=== PATIENT | male | born 1995 | race American Indian/Alaskan Native ===

== ENCOUNTER 2017-09-29 17:22 | Emergency (ER) | payer BC ==
--- NOTE | 2017-09-29 17:34 | EDM.PDOC ---
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 He was apparently bucked off, and the bull stepped on the back of his head. The patient states that he was wearing a helmet and chest protector best. The patient apparently suffered an approximately 5 minute seizure immediately after being stepped on, after which, when he woke up, he was confused. His confusion has improved since then. He complains only of pain to the back of his head, not to his neck, and there are no other witnessed injuries - one of the EMS technicians was at the rodeo and witnessed the injury. The patient's BP was 177/112 with a HR of 120. The patient was backboarded with a cervical collar per EMS. His oxygen saturation was 92% on room air; EMS placed a nonrebreather mask. The patient vomited once en route; EMS gave 4 mg Zofran IVP. Here in the ED, the patient is complaining of some low back pain while still on the backboard. He states that he recalls riding the bull, but that the next thing he remembers is waking up in the ambulance. He does not recall the fall off the bull or being stepped on. Head Pain Score (Numeric/FACES): 6 - Related Data Allergies Allergy/AdvReac Type Severity Reaction Status Date / Time No Known Allergies Allergy Verified 09/29/17 17:59 Home Meds: Home Meds . [No Known Home Meds] 09/29/17 [History] Past Medical History - Past Surgical History GI Surgical History: Reports: Appendectomy Dermatological Surgical History: Reports: Skin Graft (left forearm) Social & Family History - Tobacco Use Smoking Status *Q: Never Smoker - Alcohol Use Alcohol Use History: Yes Alcohol Use Frequency: Socially - Recreational Drug Use Recreational Drug Use: Yes Drug Use in Last 12 Months: Yes Recreational Drug Type: Reports: Marijuana/Hashish (smokes occasionally) - Living Situation & Occupation Living situation: Reports: Single, with Family Occupation: Unemployed Review of Systems - Review of Systems Review Of Systems: ROS reveals no pertinent complaints other than HPI. ED EXAM, GENERAL - Physical Exam Exam: See Below Exam Limited By: No Limitations General Appearance: Alert, WD/WN, No Apparent Distress Eye Exam: Bilateral Eye: EOMI, Normal Inspection, PERRL Ears: Normal External Exam, Normal Canal, Hearing Grossly Normal, Normal TMs Nose: Normal Inspection, Normal Mucosa, No Blood Throat/Mouth: Normal Inspection, Normal Lips, Normal Teeth, Normal Gums, Normal Oropharynx, Normal Voice, No Airway Compromise Head: Atraumatic (No visible or palpable abnormality to the posterior scalp, although the patient complains of some tenderness to the posterior left scalp), Normocephalic Neck: Other (Cervical collar kept on) Respiratory/Chest: No Respiratory Distress, Lungs Clear, Normal Breath Sounds, No Accessory Muscle Use, Chest Non-Tender Cardiovascular: Normal Peripheral Pulses, Regular Rate, Rhythm, No Edema, No Gallop, No JVD, No Murmur, No Rub Peripheral Pulses: 4+: Radial (L), Radial (R) GI/Abdominal: Normal Bowel Sounds, Soft, Non-Tender, No Organomegaly, No Distention, No Abnormal Bruit, No Mass (Male) Exam: Deferred Rectal (Males) Exam: Deferred Back Exam: Normal Inspection (No visible or palpable abnormality to the patient' s spine. No tenderness to palpation of the patient's back.), Full Range of Motion Extremities: Normal Inspection, Normal Range of Motion, Non-Tender, Normal Capillary Refill, No Pedal Edema Neurological: Alert, Oriented (To person, place, year, and month, but not date. Correctly names the vice president of contracts.), CN II-XII Intact, Normal Cognition, No Motor/Sensory Deficits Psychiatric: Normal Affect Skin Exam: Warm, Dry, Intact, Normal Color, No Rash Course - Orders/Labs/Meds Orders: Active Orders 24 hr Category Date Time Status Cervical Spine wo Cont [CT] Routine Exams 09/29/17 Ordered Head wo Cont [CT] Routine Exams 09/29/17 Ordered Sodium Chloride 0.9% [Normal Saline] 1,000 ml Med 09/29/17 17:45 Active IV ASDIRECTED Medication Orders Sodium Chloride (Normal Saline) 1,000 mls @ 150 mls/hr IV ASDIRECTED COLLEEN Last Admin: 09/29/17 17:50 Dose: 150 mls/hr Meds: Medications Generic Name Dose Route Start Last Admin Trade Name Freq PRN Reason Stop Dose Admin Sodium Chloride 1,000 mls @ 150 mls/hr 09/29/17 17:45 09/29/17 17:50 Normal Saline IV 150 mls/hr ASDIRECTED COLLEEN Administration Discontinued Medications Generic Name Dose Route Start Last Admin Trade Name Freq PRN Reason Stop Dose Admin Ondansetron HCl 4 mg 09/29/17 17:43 09/29/17 17:50 Zofran IVPUSH 09/29/17 17:44 4 mg ONETIME ONE Administration - Re-Assessments/Exams Free Text/Narrative Re-Assessment/Exam: 09/29/17 17:43 The patient was able to provide me a good past medical history, but vomited in the ED. I have ordered additional Zofran 4 mg and NS at 150 mL per hour. 09/29/17 18:02 CT of the head without contrast is read by [facility] as "Hematoma left parietal region. No underlying skull fracture." CT of the cervical spine without contrast is read by [facility] as "No acute findings." 09/29/17 18:08 At present, the patient is alert. He is aware that the month is September, although is not sure if it is September 26 of October 07. He knows the year and knows the president. He has vomited 3 times total. He is complaining of a headache. Clinically, I believe the patient has a concussion, especially in light of his post-injury seizure. The patient will require observation for neuro checks. 09/29/17 18:[address] Gilman at 18:10. He does not feel that the nursing staff at this facility are adequately trained and comfortable with neuro checks for closed head injuries, and is therefore recommending transfer to [place]. The patient prefers transfer to [facility]. 09/29/17 18:30 [facility] contacted at 18:25. Case discussed with Dr. Jimenez, ED physician at [facility], at 18: 28. Unfortunately, there is no Neurosurgeon skin lap bonder at [facility], therefore she cannot accept the patient for transfer. The patient will have to go to [facility]. 09/29/17 18:36 Case discussed with [facility] at 18:33. Case then discussed with Dr. Trejo, ED physician at [facility], at 18:35. She stated that the trauma surgeon, Dr. Hackett, was standing next to her. She accepts patient for transfer to their emergency department. CT images have been pushed to [facility]. Departure - Departure Time of Disposition: 18:37 Disposition: DC/Tfer to Acute Hospital 02 Condition: Fair Clinical Impression: Traumatic injury of head, Concussion - Discharge Information - My Orders Last 24 Hours: My Active Orders 09/29/17 Cervical Spine wo Cont [CT] Routine Head wo Cont [CT] Routine 09/29/17 17:45 Sodium Chloride 0.9% [Normal Saline] 1,000 ml IV ASDIRECTED - Assessment/Plan Last 24 Hours: My Active Orders 09/29/17 Cervical Spine wo Cont [CT] Routine Head wo Cont [CT] Routine 09/29/17 17:45 Sodium Chloride 0.9% [Normal Saline] 1,000 ml IV ASDIRECTED
[2017-09-29] MEDS ORDERED: Ondansetron 4 MG/2 ML SDV IVPUSH ONE (17:43)
[2017-09-29] MEDS ORDERED: Sodium Chloride 0.9% 1,000 ML IV SCH (17:45)
--- NOTE | 2017-09-30 16:18 | CT ---
Head CT Technique: Multiple axial sections through the brain were obtained. Intravenous contrast was not utilized. Comparison: No previous intracranial imaging. Findings: Ventricles along the basal cisterns and sulci over the convexities are within normal limits for the patient's age. No abnormal parenchymal densities are seen. No evidence of intracranial hemorrhage. No midline shift or mass effect is seen. Bone window settings were reviewed and show no acute calvarial abnormality. Minimal mucosal thickening is seen within the ethmoid sinuses. Scalp hematoma is noted within the left parietal region. Impression: 1. Mild scalp hematoma within the left parietal region. 2. No acute intracranial abnormality is seen. 3. Minimal sinus findings which are felt to be incidental. Diagnostic code #2 I agree with preliminary report from [facility], finalized at 09/29/17, 6:57 PM Central Time
--- NOTE | 2017-09-30 16:18 | CT ---
CT cervical spine Technique: Multiple axial sections were obtained from above C1 inferiorly to the bottom of T3. Reconstructed sagittal and coronal images were reviewed. Comparison: No previous study. Findings: Vertebral body heights and disc spaces are maintained. Prevertebral soft tissues are normal. No fracture is seen. No bony central or bony neural foraminal stenosis is seen. No abnormal subluxation is seen on the reconstructed sagittal images. Minimal scoliosis is present. Impression: 1. Minimal scoliosis. 2. Nothing acute is seen on CT study of the cervical spine. Diagnostic code #2 I agree with preliminary report from [facility], finalized at 09/29/17, 6:59 PM Central Time
== END 2017-09-29 19:26 ==
LOC: JD.ED 17:22
DX: S06.0X9A Concussion with loss of consciousness of unspecified duration, initial encounter (principal); W55.22XA Struck by cow, initial encounter
CPT/HCPCS: 70450; 72125; 96361; 96374; 99285; G0390; J2405; J7040